=== PATIENT | female | born 1990 | race African-American/Black ===

== ENCOUNTER 2016-10-14 10:46 | Emergency (ER) | payer MEDICAID ==
[~2016-10-14] VITALS: Ht 167.6 cm; Wt 97.0 kg
[2016-10-14] MEDS ORDERED: MORPHINE SULFATE 4 MG/ML CPJ (NOT FOR IM USE) IV STA (11:39)
[2016-10-14] MEDS ORDERED: ONDANSETRON HCL 4MG/2ML VIAL IV STA (11:39)
[2016-10-14 12:12] LABS: HEMATOCRIT. 35.1 % (36.0-48.0); HEMOGLOBIN. 11.8 g/dL (12.0-16.0); MEAN CORPUSCULAR HEMOGLOBIN 29.4 pg (28.0-32.0); MEAN CORPUSCULAR VOLUME 87.5 fL (81.0-99.0); MEAN PLATELET VOLUME 7.6 fl (7.4-10.4); PLATELET 156 x1000/uL (130-400); RED BLOOD CELL COUNT 4.02 mill/uL (4.2-5.4); RED CELL DISTRIBUTION WIDTH 14.8 % (11.6-14.6)
[2016-10-14 12:28] LABS: CARBON DIOXIDE 27 mEq/L (21-32); CHLORIDE 108 mEq/L (98-107)
[2016-10-14 12:55] VITALS: BP 134/67
[2016-10-14 13:42] LABS: ATYPICAL LYMPHOCYTES 14; PLATELET ESTIMATE NORMAL
[2016-10-14 14:20] LABS: CLARITY URINE TURBID (CLEAR); COLOR URINE DARK YELLOW (YELLOW); GLUCOSE URINE NEGATIVE (NEGATIVE); KETONES URINE TRACE (NEGATIVE); LEUKOCYTE ESTERASE URINE 1+ (NEGATIVE); NITRITE URINE NEGATIVE (NEGATIVE); OCCULT BLOOD URINE NEGATIVE (NEGATIVE); PROTEIN URINE 1+ (NEGATIVE)
== END 2016-10-14 14:15 | disposition left against medical advice (07) ==
LOC: ER 11:39
DX: M54.5 Low back pain (principal); R10.11 Right upper quadrant pain; F17.200 Nicotine dependence, unspecified, uncomplicated; R11.2 Nausea with vomiting, unspecified
CPT/HCPCS: 36415; 76705; 80053; 81001; 83690; 85025; 96374; 96375; 99285; J2270; J2405; Z7610

== ENCOUNTER 2018-01-01 09:51 | Emergency (ER) | payer MEDICAID, OTHER ==
[~2018-01-01] VITALS: Ht 167.6 cm; Wt 113.0 kg
[2018-01-01] MEDS ORDERED: NITROGLYCERIN 0.4MG TABLET SL SL PRN (11:00)
[2018-01-01] MEDS ORDERED: ASPIRIN 81MG TABLET PO ONE (11:00)
[2018-01-01 11:38] LABS: BASOPHILS % 0.3 % (0.0-2.0); EOSINOPHILS % 1.6 % (0.0-5.0); HEMATOCRIT. 36.4 % (36.0-48.0); HEMOGLOBIN. 12.4 g/dL (12.0-16.0); LYMPHOCYTES % 30.2 % (20.0-50.0); MEAN CORPUSCULAR HEMOGLOBIN 32.4 pg (28.0-32.0); MEAN CORPUSCULAR VOLUME 95.1 fL (81.0-99.0); MEAN PLATELET VOLUME 9.5 fl (7.4-10.4); MONOCYTES % 5.5 % (2.0-8.0); NEUTROPHILS % 62.4 % (40.0-76.0); PLATELET 195 x1000/uL (130-400); RED BLOOD CELL COUNT 3.82 mill/uL (4.2-5.4)
[2018-01-01 11:45] LABS: CHLORIDE 107 mEq/L (98-107)
[2018-01-01 11:49] LABS: D-DIMER 0.39 mg/L FEU (<0.50); PARTIAL THROMBOPLASTIN TIME 28.3 sec (23.4-31.0); PROTHROMBIN TIME 10.1 sec (9.1-11.1)
[2018-01-01 11:58] LABS: HCG SCREEN POSITIVE
[2018-01-01 12:30] LABS: *COCAINE SCREEN URINE NEGATIVE (NEGATIVE); METHADONE URINE SCREEN NEGATIVE (NEGATIVE)
[2018-01-01 12:31] LABS: *BARBITURATES SCREEN URINE NEGATIVE (NEGATIVE); PHENCYCLIDINE URINE SCREEN NEGATIVE (NEGATIVE)
[2018-01-01 12:32] LABS: *AMPHETAMINES SCREEN URINE NEGATIVE (NEGATIVE); *BENZODIAZEPINES SCREEN URINE NEGATIVE (NEGATIVE)
[2018-01-01 12:33] LABS: CANNABINOID URINE SCREEN PRESUMTIVE POSITIVE (NEGATIVE); OPIATES URINE SCREEN PRESUMTIVE POSITIVE (NEGATIVE)
[2018-01-01 15:37] VITALS: BP 118/64
== END 2018-01-01 15:49 | disposition home or self-care (01) ==
LOC: ER 09:51
DX: O99.412 Diseases of the circulatory system complicating pregnancy, second trimester (principal); R07.89 Other chest pain; O26.892 Other specified pregnancy related conditions, second trimester; F12.10 Cannabis abuse, uncomplicated; F17.200 Nicotine dependence, unspecified, uncomplicated; Z3A.20 20 weeks gestation of pregnancy
CPT/HCPCS: 36415; 71045; 76805; 80053; 80305; 81025; 83880; 84484; 84702; 84703; 85025; 85379; 85610; 85730; 86850; 86900; 93005; 93970; 99285; 99406

== ENCOUNTER 2018-01-16 10:43 | Emergency (ER) | payer OTHER ==
[~2018-01-16] VITALS: Ht 167.6 cm; Wt 114.0 kg
[2018-01-16 10:52] VITALS: BP 127/77
[2018-01-16] MEDS ORDERED: ACETAMINOPHEN 325MG TABLET PO STA (11:36)
== END 2018-01-16 12:14 | disposition home or self-care (01) ==
LOC: ER 10:49
DX: O99.89 Other specified diseases and conditions complicating pregnancy, childbirth and the puerperium (principal); G56.01 Carpal tunnel syndrome, right upper limb; Z3A.23 23 weeks gestation of pregnancy
CPT/HCPCS: 29125; 99283

== ENCOUNTER 2018-02-08 13:04 | Emergency (ER) | payer OTHER ==
[~2018-02-08] VITALS: Ht 167.6 cm; Wt 111.0 kg
[2018-02-08 13:14] VITALS: BP 137/83
== END 2018-02-08 14:36 | disposition left against medical advice (07) ==
LOC: ER 13:04
DX: M25.531 Pain in right wrist (principal); Z53.21 Procedure and treatment not carried out due to patient leaving prior to being seen by health care provider

== ENCOUNTER 2018-04-29 09:23 | Observation (INO) | payer OTHER ==
[~2018-04-29] VITALS: Ht 167.6 cm; Wt 116.1 kg
[2018-04-29] MEDS ORDERED: PNV1TABL50 PO (10:24)
== END 2018-04-29 10:45 | disposition home or self-care (01) ==
LOC: 8 EST LDRP 09:23
PROVIDERS: ADMIT Specialist; ATTEND Specialist
DX: O26.893 Other specified pregnancy related conditions, third trimester (principal); R10.2 Pelvic and perineal pain; Z3A.37 37 weeks gestation of pregnancy
CPT/HCPCS: 99281; G0378

== ENCOUNTER 2018-05-13 13:08 | Observation (INO) | payer OTHER ==
[~2018-05-13 13:08] MED LIST: PNV1TABL50 PO
== END 2018-05-13 18:58 | disposition home or self-care (01) ==
LOC: 8 EST LDRP 13:08
PROVIDERS: ADMIT Obstetrics & Gynecology; ATTEND Obstetrics & Gynecology
DX: O26.893 Other specified pregnancy related conditions, third trimester (principal); R10.30 Lower abdominal pain, unspecified; Z3A.39 39 weeks gestation of pregnancy
CPT/HCPCS: G0378 ×2; 99281

== ENCOUNTER 2018-05-14 13:44 | Observation (INO) | payer OTHER ==
[~2018-05-14] VITALS: Ht 157.5 cm; Wt 90.7 kg
[2018-05-24] MEDS ORDERED: CITRIC ACID/SODIUM CITRATE SOLN 30ML UDC PO NR (17:45)
== END 2018-05-14 15:10 | disposition home or self-care (01) ==
LOC: INTOOBSV 13:44 → UNDOADMOB 13:44 → OBSVTOIN 13:44 → 8EST NSY 13:44 → 8 EST LDRP 15:00 → 8EST NSY 15:10 → UNDOADMOB 15:10 → 8EST NSY 15:20 → UNDOADMOB 15:20 → INTOOBSV 15:20 → OBSVTOIN 15:20 → 8 EST LDRP 15:20 → 8EST NSY 05-23 11:55 → 8 EST LDRP 05-23 11:55 → UNDODISOB 05-24 15:00 → UNDODISIN 05-24 15:00
PROVIDERS: ADMIT Obstetrics & Gynecology; ATTEND Obstetrics & Gynecology
DX: O62.9 Abnormality of forces of labor, unspecified (principal); O48.0 Post-term pregnancy; Z3A.40 40 weeks gestation of pregnancy
CPT/HCPCS: 99281; G0378

== ENCOUNTER 2018-05-31 10:53 | Emergency (ER) | payer OTHER ==
[~2018-05-31] VITALS: Ht 167.6 cm; Wt 116.0 kg
[2018-05-31] MEDS ORDERED: CEPH500C2 MT (11:28)
[2018-05-31] MEDS ORDERED: NIFE60TA64 MT (11:28)
[2018-05-31] MEDS ORDERED: ONDANSETRON HCL 4MG/2ML INJ IV ONE (12:30)
[2018-05-31] MEDS ORDERED: MORPHINE SULFATE 4 MG/ML CPJ (NOT FOR IM USE) IV ONE (12:30)
[2018-05-31] MEDS ORDERED: SODIUM CHLORIDE 0.9% 1,000 ML IV ONE (12:30)
[2018-05-31 12:49] VITALS: BP 127/91
[2018-05-31] MEDS ORDERED: DIATR MEGLU/DIATRIZOATE SOLN 30ML ONE (13:28)
== END 2018-05-31 14:00 | disposition left against medical advice (07) ==
LOC: ER 10:53
DX: O90.89 Other complications of the puerperium, not elsewhere classified (principal); R10.30 Lower abdominal pain, unspecified
CPT/HCPCS: 99283; J7030; Z7610; Q9963

== ENCOUNTER 2024-05-23 16:12 | Emergency (ER) | payer BC, MEDICAID, OTHER ==
[~2024-05-23] VITALS: Ht 172.7 cm; Wt 102.0 kg
[~2024-05-23 16:12] MED LIST changes: +CEPH500C2 MT; +NIFE-32 MT
[2024-05-23 16:16] VITALS: O2SAT 100
[2024-05-23 16:40] VITALS: BP 148/87; PULSE 75; RESP 16; TEMP 36.8; O2SAT 100
[2024-05-23] MEDS: ONDANSETRON HCL 4MG/2ML INJ IV STA (17:36)
[2024-05-23] MEDS: SODIUM CHLORIDE 0.9% 1,000 ML IV ONE (17:36)
[2024-05-23] MEDS: MORPHINE SULFATE 4 MG/ML INJ (FOR IV/IM USE) IV STA (17:36)
[2024-05-23 18:27] LABS: CHLORIDE 117 mEq/L (98-107); POTASSIUM 2.9 mEq/L (3.5-5.1); SODIUM 143 mEq/L (136-145)
[2024-05-23 18:28] LABS: BASOPHILS % 0.2 % (0.0-2.0); CALCIUM 6.2 mg/dL (8.7-10.4); CARBON DIOXIDE 18 mEq/L (21-32); EOSINOPHILS % 1.9 % (0.0-5.0); HEMATOCRIT. 31.6 % (36.0-48.0); HEMOGLOBIN. 10.1 g/dL (12.0-16.0); LYMPHOCYTES % 40.8 % (20.0-50.0); MEAN CORPUSCULAR HEMOGLOBIN 30.9 pg (28.0-32.0); MEAN CORPUSCULAR VOLUME 96.8 fL (81.0-99.0); MEAN PLATELET VOLUME 8.7 fl (7.4-10.4); MONOCYTES % 7.1 % (2.0-8.0); PLATELET 120 x1000/uL (130-400); RED BLOOD CELL COUNT 3.27 mill/uL (4.2-5.4); RED CELL DISTRIBUTION WIDTH 14.4 % (11.6-14.6); WHITE BLOOD COUNT 3.9 x1000/uL (4.5-11.0)
[2024-05-23 18:30] LABS: HCG SCREEN NEGATIVE
[2024-05-23 18:33] LABS: CREATININE 0.4 mg/dL (0.6-1.0); GLUCOSE 288 mg/dL (70-105); UREA NITROGEN BLOOD 7 mg/dL (9-23)
[2024-05-23 18:35] LABS: ALANINE AMINOTRANSFERASE < 7 IU/L (10-49); ALBUMIN 2.4 g/dL (3.2-4.8); BILIRUBIN TOTAL 0.3 mg/dL (0.1-1.0)
[2024-05-23 18:38] LABS: ASPARTATE AMINOTRANSFERASE < 8 IU/L (<34); BILIRUBIN DIRECT < 0.1 mg/dL (<=3.0)
[2024-05-23 18:40] LABS: INR 0.9; PROTHROMBIN TIME 10.5 sec (9.6-11.0)
[2024-05-23] MEDS ORDERED: KCL 20MEQ/100ML PREMIX 100 ML IV ONE (19:00)
[2024-05-23] MEDS ORDERED: POTASSIUM CHLORIDE 20MEQ TABLET SR PO ONE (19:00)
== END 2024-05-23 19:25 | disposition left against medical advice (07) ==
LOC: ER 16:12
DX: N64.4 Mastodynia (principal); E11.9 Type 2 diabetes mellitus without complications; I10 Essential (primary) hypertension; D64.9 Anemia, unspecified; Z85.9 Personal history of malignant neoplasm, unspecified; Z79.899 Other long term (current) drug therapy; Z98.890 Other specified postprocedural states
CPT/HCPCS: 80076; 80048; 84703; 83605; 83690; 85025; 85610; 86850; 86900; 86901; 87040; 36415; 84145; 96361; 96374; 96375; 99284; J2405; J2270; J7030; Z7610; A4606

== ENCOUNTER 2024-09-05 00:49 | Emergency (ER) | payer BC, MEDICAID ==
[~2024-09-05] VITALS: Ht 170.2 cm; Wt 69.0 kg
[2024-09-05 00:51] VITALS: BP 153/98; PULSE 107; RESP 16; TEMP 36.7; O2SAT 99
== END 2024-09-05 01:04 | disposition left against medical advice (07) ==
LOC: ER 00:49
DX: R51.9 Headache, unspecified (principal); M79.602 Pain in left arm; Z53.21 Procedure and treatment not carried out due to patient leaving prior to being seen by health care provider

== ENCOUNTER 2024-09-16 06:58 | Inpatient (IN) | payer BC, MEDICAID ==
[~2024-09-16] VITALS: Ht 175.3 cm; Wt 77.0 kg
[2024-09-16 07:09] VITALS: O2SAT 100
[2024-09-16] MEDS ORDERED: VANCOMYCIN 1000MG/250ML 250 ML IV STA (07:41)
[2024-09-16] MEDS ORDERED: CEFEPIME 2GM IN DEXT 5% 100ML IV ONE (07:45)
[2024-09-16] MEDS ORDERED: VANCOMYCIN 1000MG/250ML 250 ML IV SCH (07:45)
[2024-09-16] MEDS: SODIUM CHLORIDE 0.9% (SEPSIS BOLUS) IV ONE (07:59)
[2024-09-16] MEDS: VANCOMYCIN 1G PREMIX 200 ML IV SCH (08:01)
[2024-09-16] MEDS: ONDANSETRON HCL 4MG/2ML INJ IV ONE (08:03)
[2024-09-16] MEDS: ACETAMINOPHEN 325MG TABLET PO ONE (08:04)
[2024-09-16 08:23] LABS: BASOPHILS % 0.2 % (0.0-2.0); EOSINOPHILS % 0.3 % (0.0-5.0); HEMATOCRIT. 35.4 % (36.0-48.0); HEMOGLOBIN. 11.6 g/dL (12.0-16.0); LYMPHOCYTES % 7.6 % (20.0-50.0); MEAN CORPUSCULAR HEMOGLOBIN 28.2 pg (28.0-32.0); MEAN CORPUSCULAR HGB CONC 32.9 g/dL (31.0-37.0); MEAN CORPUSCULAR VOLUME 85.7 fL (81.0-99.0); MEAN PLATELET VOLUME 8.3 fl (7.4-10.4); MONOCYTES % 7.6 % (2.0-8.0); NEUTROPHILS % 84.3 % (40.0-76.0); PLATELET 370 x1000/uL (130-400); RED BLOOD CELL COUNT 4.13 mill/uL (4.2-5.4); RED CELL DISTRIBUTION WIDTH 14.3 % (11.6-14.6); WHITE BLOOD COUNT 16.7 x1000/uL (4.5-11.0)
[2024-09-16 08:24] LABS: CHLORIDE 95 mEq/L (98-107); POTASSIUM 3.9 mEq/L (3.5-5.1); SODIUM 131 mEq/L (136-145)
[2024-09-16 08:25] LABS: CALCIUM 9.5 mg/dL (8.7-10.4); CARBON DIOXIDE 26 mEq/L (21-32)
[2024-09-16 08:30] LABS: CREATININE 0.8 mg/dL (0.6-1.0)
[2024-09-16 08:31] LABS: UREA NITROGEN BLOOD < 5 mg/dL (9-23)
[2024-09-16 08:32] LABS: ALANINE AMINOTRANSFERASE 13 IU/L (10-49); ALBUMIN 3.9 g/dL (3.2-4.8); ASPARTATE AMINOTRANSFERASE 10 IU/L (<34); BILIRUBIN DIRECT 0.2 mg/dL (<=3.0)
[2024-09-16 08:33] LABS: BILIRUBIN TOTAL 0.6 mg/dL (0.1-1.0)
[2024-09-16 08:35] LABS: HCG SCREEN NEGATIVE
[2024-09-16 08:38] LABS: INR 1.1; PROTHROMBIN TIME 11.9 sec (9.6-11.0)
[2024-09-16 09:12] LABS: GLUCOSE 462 mg/dL (70-105)
[2024-09-16] MEDS: MORPHINE SULFATE 4 MG/ML INJ (FOR IV/IM USE) IV ONE (09:21)
[2024-09-16] MEDS ORDERED: INSULIN REGULAR (HUMULIN R) 1000UNITS/10ML VIAL IV ONE (09:30)
[2024-09-16 09:45] VITALS: TEMP 38.1
[2024-09-16] MEDS ORDERED: MORPHINE SULFATE 4 MG/ML INJ (FOR IV/IM USE) IV ONE (09:45)
[2024-09-16 09:50] VITALS: TEMP 98.6
[2024-09-16] MEDS ORDERED: CEFEPIME 2GM/50ML DUPLEX 50 ML IV SCH (10:00)
[2024-09-16 10:20] VITALS: BP 95/56; PULSE 104; RESP 19; O2SAT 100
== END 2024-09-16 12:32 | disposition left against medical advice (07) | DRG 720 ==
LOC: ER 06:58 → 6WST 09:34 → EDBEDREQ 09:37 → EDBEDREQTM 09:37 → ENRESERV 09:45
PROVIDERS: ADMIT Internal Medicine; ATTEND Internal Medicine
DX: A41.9 Sepsis, unspecified organism (principal); E11.65 Type 2 diabetes mellitus with hyperglycemia; N61.0 Mastitis without abscess; Z53.29 Procedure and treatment not carried out because of patient's decision for other reasons; Z85.3 Personal history of malignant neoplasm of breast; Z98.891 History of uterine scar from previous surgery
CPT/HCPCS: 36415; 71045; 71260; 80048; 80076; 82962; 83605; 84145; 84703; 85025; 93005; 99291; J0692; J2270; J2405; J3370; J7030